=== PATIENT | male | born 1985 | race Caucasian/White ===

== ENCOUNTER 2017-08-30 21:53 | Emergency (ER) | payer SELFPAY ==
[~2017-08-30] VITALS: Ht 182.9 cm; Wt 90.0 kg
[~2017-08-30 21:53] MED LIST: BACT800T5 PO; CEPH500C3 PO
[2017-08-30 21:56] VITALS: BP 114/72; PULSE 71; RESP 16; TEMP 97.7; O2SAT 100
[2017-08-31] VITALS: BP 117/73; PULSE 68; RESP 16; O2SAT 100
[2017-08-31 00:09] LABS: AUTOMATED NEUTROPHIL # 3.7 TH/MM3 (1.8-7.7); BASOPHIL % 0.7 % (0.0-2.0); BILIRUBIN, URINE NEG (NEG); BLOOD, URINE NEG (NEG); EOSINOPHIL # 0.2 TH/MM3 (0-0.4); EOSINOPHIL % 3.6 % (0.0-4.0); GLUCOSE,URINE NEG (NEG); HEMATOCRIT 39.7 % (39.0-51.0); KETONE, URINE NEG (NEG); LYMPH % 20.6 % (9.0-44.0); LYMPHOCYTE # 1.2 TH/MM3 (1.0-4.8); MEAN CELL VOLUME 89.5 FL (80.0-100.0); MEAN CORPUSCULAR HEMOGLOBIN 31.5 PG (27.0-34.0); MEAN CORPUSCULAR HGB CONC 35.2 % (32.0-36.0); MEAN PLATELET VOLUME 5.9 FL (7.0-11.0); MONO % 9.4 % (0.0-8.0); MONOCYTE # 0.5 TH/MM3 (0-0.9); MUCUS URINE FEW /lpf (OCC); NEUT % 65.7 % (16.0-70.0); NITRITE,URINE NEG (NEG); PH, URINE 7.5 (5.0-8.5); PLATELET COUNT 334 TH/MM3 (150-450); RED BLOOD COUNT 4.44 MIL/MM3 (4.50-5.90); RED CELL DISTRIBUTION WIDTH 13.5 % (11.6-17.2); URINE COLOR YELLOW (YELLW/STRAW); URINE LEUKOCYTE ESTERASE NEG (NEG); WHITE BLOOD COUNT 5.7 TH/MM3 (4.0-11.0)
[2017-08-31 00:20] LABS: INTERNATIONAL NORMALIZED RATIO 1.1 RATIO; PROTHROMBIN TIME - PATIENT 11.1 SEC (9.8-11.6)
[2017-08-31 00:31] LABS: ALBUMIN 3.1 GM/DL (3.4-5.0); ALT (GPT) 41 U/L (12-78); AST (GOT) 30 U/L (15-37); BICARBONATE 31.1 MEQ/L (21.0-32.0); BLOOD UREA NITROGEN 11 MG/DL (7-18); CALCIUM 8.4 MG/DL (8.5-10.1); CHLORIDE 103 MEQ/L (98-107); CREATININE 0.85 MG/DL (0.60-1.30); GLOMERULAR FILTRATION RATE 104 ML/MIN (>89); GLUCOSE,RANDOM 74 MG/DL (74-106); SODIUM (NA) 139 MEQ/L (136-145)
[2017-08-31 00:33] LABS: ALKALINE PHOSPHATASE 73 U/L (45-117); C-REACTIVE PROTEIN 4.22 MG/DL (0.00-0.30); TOTAL BILIRUBIN ADULT 0.6 MG/DL (0.2-1.0); TOTAL PROTEIN 6.7 GM/DL (6.4-8.2)
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
--- NOTE | 2017-08-31 00:48 | RADRPT ---
EXAM DATE/TIME: 08/31/2017 00:27 [facility] COMPARISON: No previous studies available for comparison. INDICATIONS : Right leg swelling. MEDICAL HISTORY : Hepatitis C. Seizures. SURGICAL HISTORY : Bone graft, left hip. ENCOUNTER: Initial ACUITY: 4 - 6 days PAIN SCORE: 3/10 LOCATION: Right leg. TECHNIQUE: Venous ultrasound of the leg was performed from the inguinal ligament to the proximal calf. Real-merle e, color Doppler and spectral tracing, compression and augmentation techniques were used. FINDINGS: There is normal compressibility of the deep venous system from the inguinal region to the proximal ca lf. No echogenic clot is seen in the lumen of the common femoral, femoral, popliteal, and posterior tibial veins. There is a normal response of the venous system to proximal and distal augmentation an d respiration. CONCLUSION: No DVT is identified within the right lower extremity. Bar Jules MD on August 31, 2017 at 0:46 Board Certified Radiologist. This report was verified electronically.
[2017-08-31] MEDS ORDERED: SULFAMETHOXAZOLE-TRIMETHOPRIM DS 800-160 MG TAB PO ONE (01:45)
[2017-08-31] MEDS ORDERED: CLINDAMYCIN 900 MG/NS PREMIX 50 ML IV ONE (01:45)
[2017-08-31] MEDS ORDERED: CLIN300C5 PO (02:38)
[2017-08-31] MEDS ORDERED: BACT800T5 PO (02:38)
[2017-08-31 02:52] VITALS: BP 110/63
== END 2017-08-31 02:59 | disposition home or self-care (01) ==
LOC: NEPE 21:53
DX: L03.115 Cellulitis of right lower limb (principal); B19.20 Unspecified viral hepatitis C without hepatic coma; F12.90 Cannabis use, unspecified, uncomplicated
CPT/HCPCS: 80053; 80307; 81001; 83605; 83690; 83735; 85025; 85610; 85730; 86140; 87040; 93971; 96374

== ENCOUNTER 2018-05-31 02:40 | Inpatient (IN) ==
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
[2018-05-31 03:19] LABS: Baso % (Auto) 0.7 % (0.0-2.0); Eos # (Auto) 0.3 th/mm3 (0.0-0.4); Eos % (Auto) 4.6 % (0.0-4.0); Hematocrit 43.4 % (39.0-51.0); Hemoglobin 14.9 gm/dL (13.0-17.0); Lymph # (Auto) 2.3 th/mm3 (1.0-4.8); Lymph % (Auto) 38.5 % (9.0-44.0); Mean Corpuscular HGB Conc 34.4 % (32.0-36.0); Mean Corpuscular Hemoglobin 31.6 pg (27.0-34.0); Mean Corpuscular Volume 91.8 fL (80.0-100.0); Mean Platelet Volume 6.5 fL (7.0-11.0); Mono # (Auto) 0.5 th/mm3 (0.0-0.9); Mono % (Auto) 7.7 % (0.0-8.0); Neut % (Auto) 48.5 % (16.0-70.0); Platelet Count 287 th/mm3 (150-450); Red Blood Count 4.73 mil/mm3 (4.50-5.90); Red Cell Distribution Width 13.5 % (11.6-17.2); White Blood Count 6.1 th/mm3 (4.0-11.0)
[2018-05-31 03:31] LABS: Bacteria,Urine Rare /hpf; Bilirubin,Urine Negative (Negative); Clarity,Urine Hazy (Clear); Color,Urine Yellow (Yellw/Straw); Glucose,Urine (UA) Negative (Negative); Hyaline Casts,Urine 38 /lpf (0-3); Leukocyte Esterase,Urine Negative (Negative); Mucus,Urine Few /lpf (Occasional); Nitrite,Urine Negative (Negative); Specific Gravity,Urine 1.009 (1.002-1.035)
[2018-05-31 03:34] LABS: Amphetamine Screen,Urine Pos (Neg); Barbiturate Screen,Urine Neg (Neg); Cannabinoid Screen,Urine Neg (Neg); Cocaine Screen,Urine Neg (Neg)
[2018-05-31 03:35] LABS: Opiate Screen,Urine Pos (Neg)
[2018-05-31 03:37] LABS: Alkaline Phosphatase 78 U/L (45-117); Total Protein 6.9 g/dL (6.4-8.2)
[2018-05-31 03:38] LABS: INR 1.1 Ratio; Prothrombin Time 11.1 sec (9.8-11.6)
[2018-05-31 03:39] LABS: Alanine Aminotransferase 64 U/L (12-78); Albumin 3.5 g/dL (3.4-5.0); Alcohol 6 mg/dL (0-5); Anion Gap 13 meq/L (5-15); Aspartate Aminotransferase 58 U/L (15-37); Blood Urea Nitrogen 14 mg/dL (7-18); Calcium 7.9 mg/dL (8.5-10.1); Carbon Dioxide 23.5 meq/L (21.0-32.0); Chloride 106 meq/L (98-107); Glomerular Filtration Rate 52 mL/min (>89); Glucose,Random 119 mg/dL (74-106); Lipase 92 U/L (73-393); Magnesium 1.8 mg/dL (1.5-2.5); Sodium 142 meq/L (136-145)
--- NOTE | 2018-05-31 03:40 | CT ---
EXAM DATE: 05/31/2018 3:34 AM EST AGE/SEX: 33 years / Male INDICATIONS: Altered mental status, possible overdose. Abrasion on patients forehead. CLINICAL DATA: This is the patient's initial encounter. Patient reports that signs and symptoms have been present for 1 day and indicates a pain score of Nonresponsive. MEDICAL/SURGICAL HISTORY: Non-responsive. Non-responsive. RADIATION DOSE: 56.35 CTDI (mGy) COMPARISON: No prior exams available for comparison. TECHNIQUE: CT of the head without contrast. Using automated exposure control and adjustment of the mA and/or kV according to patient size, radiation dose was kept as low as reasonably achievable to ob tain optimal diagnostic quality images. DICOM format image data is available electronically for revi ew and comparison. FINDINGS: Cerebrum: The ventricles are normal for age. No evidence of midline shift, mass lesion, hemorrhage or acute infarction. No extraaxial fluid collections are seen. Posterior Fossa: The cerebellum and brainstem are intact. The 4th ventricle is midline. The cerebe llopontine angle is unremarkable. Extracranial: The visualized portion of the orbits is intact. Skull: The calvaria is intact. No evidence of skull fracture. CONCLUSION: Negative CT Head non contrast. . Electronically signed by: Bar Ortiz MD 05/31/2018 3:38 AM EST
[2018-05-31] MEDS ORDERED: Naloxone Inj 0.4 MG/ML Vial IV.PUSH ONE ×2 (03:51→05:53)
--- NOTE | 2018-05-31 03:52 | XR ---
EXAM DATE: 05/31/2018 3:24 AM EST AGE/SEX: 33 years / Male INDICATIONS: Poss OD, short of breath. CLINICAL DATA: This is the patient's initial encounter. Patient reports that signs and symptoms have been present for 1 day and indicates a pain score of 0/10. MEDICAL/SURGICAL HISTORY: Non-responsive. Non-responsive. COMPARISON: No prior exams available for comparison. FINDINGS: There is mild perihilar parenchymal opacity mainly on the left which may reflect developing infiltrat e. No significant effusion identified. Cardiac contours are satisfactory. Presumed prior posttraumati c deformity of the right humerus CONCLUSION: Developing perihilar infiltrate, mainly on the left Electronically signed by: Bar Ortiz MD 05/31/2018 3:51 AM EST
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
[2018-05-31] MEDS ORDERED: Bisacodyl 10 MG Supp RECTAL PRN (04:33)
[2018-05-31] MEDS ORDERED: Acetaminophen 325 MG Tablet PO PRN (04:33)
[2018-05-31] MEDS ORDERED: Potassium Chlor 20 mEq Premix 20 MEQ/100 ML PIGGYBACK IV.SIG PRN ×2 (04:38)
[2018-05-31] MEDS ORDERED: Potassium Chlor 40 mEq Premix 40 MEQ/100 ML PIGGYBACK IV.SIG PRN ×2 (04:38)
[2018-05-31] MEDS ORDERED: Magnesium Oxide 400 MG Tablet PO PRN (04:38)
[2018-05-31] MEDS ORDERED: Potassium Phosphate 500 MG Soluble Tablet PO PRN ×2 (04:38)
[2018-05-31] MEDS ORDERED: Sodium Phosphate Inj 30 MMOL in Sodium Chlor 0.9% Inj 250 ML IV.SIG PRN (04:38)
[2018-05-31] MEDS ORDERED: Potassium Phosphate Inj 30 MMOL in Sodium Chlor 0.9% Inj 250 ML IV.SIG PRN (04:38)
[2018-05-31] MEDS ORDERED: Magnesium Sulfate Inj 2 GM in Sodium Chlor 0.9% Inj 96 ML IV.SIG PRN (04:38)
[2018-05-31] MEDS ORDERED: Potassium Chloride 25 MEQ Effervescent Tablet PO PRN (04:38)
[2018-05-31] MEDS ORDERED: Magnesium Sulfate Inj 4 GM in Sodium Chlor 0.9% Inj 92 ML IV.SIG PRN (04:38)
[2018-05-31] MEDS ORDERED: Heparin - SQ 10,000 UNITS/ML Vial SQ SCH (04:45)
[2018-05-31 04:59] LABS: Phosphorus 5.2 mg/dL (2.5-4.9)
[2018-05-31 05:01] LABS: Creatine Kinase 223 U/L (39-308)
[2018-05-31 05:16] LABS: Creatine Kinase MB 6.3 ng/mL (0.5-3.6)
[2018-05-31 05:33] LABS: ABG Base Excess 2.6 mmol/L (-2-2); ABG PCO2 55 mmHg (38-42); ABG PO2 204 mmHg (61-120)
[2018-05-31] MEDS ORDERED: Enoxaparin Inj 40 MG/0.4 ML Syringe SQ SCH (09:00)
[2018-05-31] MEDS ORDERED: Famotidine PF Inj 20 MG/2 ML Vial IV.PUSH SCH (09:00)
[2018-05-31] MEDS ORDERED: Multivitamin Inj 10 ML, Thiamine Inj 100 MG, Folic Acid Inj 1 MG in Sodium Chlor 0.9% I... IV.SIG SCH (09:00)
[2018-05-31] MEDS ORDERED: Senna/Docusate Sodium 8.6/50 MG Tablet PO SCH (09:00)
[2018-05-31 09:27] LABS: ABG PCO2 51 mmHg (38-42); ABG PO2 58 mmHG (61-120)
[2018-05-31] MEDS ORDERED: Sod Chloride 0.9% Inj 1,000 ML IV.SIG ONE (17:00)
--- NOTE | 2018-05-31 18:42 | ECG ---
Date Performed: 05/31/2018 Time Performed: 03:55:00 PTAGE: 33 years EKG: Sinus rhythm EARLY REPOLARIZATION BORDERLINE ECG NO PREVIOUS TRACING DOCTOR: Hank Castillo Interpretating Date/Time 05/31/2018 18:41:38
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
[2018-05-31 21:38] VITALS: BP 95/70; PULSE 88; RESP 20; TEMP 98.6; O2SAT 96
[2018-06-01] MEDS ORDERED: Chlorhexidine Gluconate 2% 1 Pack (2 Cloths) TOPICAL SCH (04:00)
[2018-06-01] MEDS ORDERED: Chlorhexidine Gluconate 2% 1 Pack (2 Cloths) TOPICAL PRN (04:00)
== END 2018-05-31 21:00 | disposition home or self-care (01) ==
LOC: NEPC 02:40 → NEDA 04:20 → HIMC 06:10
PROVIDERS: ADMIT Emergency Medicine; ATTEND Emergency Medicine